=== PATIENT | male | born 2000 | race Caucasian/White ===

== ENCOUNTER → 2025-02-18 | Emergency (ER) | payer OTHER ==
[~2025-02-18] VITALS: Ht 165.1 cm; Wt 54.4 kg
[2025-02-18 17:32] VITALS: BP 130/84; TEMP 98.1; O2SAT 98
== END | disposition left against medical advice (07) ==
LOC: ER 17:32
DX: Z53.21 Procedure and treatment not carried out due to patient leaving prior to being seen by health care provider (principal)